=== PATIENT | male | born 1995 | race African-American/Black ===

== ENCOUNTER 2022-06-26 01:50 | Emergency (ER) | payer SELFPAY ==
[~2022-06-26] VITALS: Ht 162.6 cm; Wt 81.8 kg
[2022-06-26 01:59] VITALS: TEMP 98.2
[2022-06-26 02:47] LABS: BASO % 0.4 % (0.0-2.0); EOS # 0.2 K/mm3 (0.0-0.7); EOS % 2.3 % (0.0-4.0); GRAN # 4.6 K/mm3 (1.4-6.5); GRAN % 55.4 % (42.2-75.2); HEMATOCRIT 39.8 % (42.0-52.0); HEMOGLOBIN 14.1 g/dl (13.5-18.0); LYMPH % 36.7 % (20.0-51.0); MEAN CELL VOLUME 85 fl (80.0-100.0); MEAN CORPUSCULAR HEMOGLOBIN 30 pg (27-31); MEAN CORPUSCULAR HGB CONC 35 g/dl (33.0-37.0); MEAN PLATELET VOLUME 10.7 fl (7.4-10.4); MONO # 0.4 K/mm3 (0.1-0.6); MONO % 5.1 % (1.7-9.3); PLATELET COUNT 175 K/mm3 (130-400); RED BLOOD COUNT 4.68 M/mm3 (4.20-5.60); REDCELL DISTRIBUTION WIDTH-CV 12.9 % (11.5-14.5)
[2022-06-26 03:10] LABS: ALBUMIN 3.9 gm/dL (3.5-5.0); BILIRUBIN,TOTAL 0.4 mg/dL (0.2-1.2); C-REACTIVE PROTEIN 0.02 mg/dL (0.00-0.50); CALCIUM 9.1 mg/dL (8.4-10.2); CREATININE, serum 0.87 mg/dL (0.72-1.25); POTASSIUM 3.7 mmol/L (3.5-4.5); TOTAL PROTEIN 7.6 gm/dL (6.2-8.1)
[2022-06-26] MEDS ORDERED: NAPROSYN500 MG PO (03:58)
[2022-06-26 04:17] VITALS: BP 118/53; PULSE 61
== END 2022-06-26 04:17 | disposition home or self-care (01) ==
LOC: COL.ER 01:50
PROVIDERS: Emergency Medicine
DX: M94.0 Chondrocostal junction syndrome [Tietze] (principal); F17.210 Nicotine dependence, cigarettes, uncomplicated; Z28.311 Partially vaccinated for COVID-19
CPT/HCPCS: J1885